=== PATIENT | male | born 1955 | race Caucasian/White ===

== ENCOUNTER 2021-04-14 20:42 | Emergency (ER) | payer BC ==
[2021-04-14] MEDS ORDERED: Losartan 50 MG Tab PO ONE (21:35)
[2021-04-14 22:27] LABS: BLOOD UREA NITROGEN,BUN 18 mg/dL (7.0-18.0); CARBON DIOXIDE,CO2 22.5 mmol/L (21.0-32.0); CHLORIDE,CL 106 mmol/L (98-107); GLUCOSE RANDOM 100 mg/dL (74-106); POTASSIUM,K 3.5 mmol/L (3.5-5.1); SODIUM,NA 137 mmol/L (136-148)
[2021-04-14 23:13] VITALS: BP 170/80; PULSE 98
== END 2021-04-14 23:13 | disposition home or self-care (01) ==
LOC: MW.ED 20:42
DX: I10 Essential (primary) hypertension (principal); Z88.0 Allergy status to penicillin
CPT/HCPCS: 36415; 70450; 80048; 84484; 85025; 99284; A9270

== ENCOUNTER 2022-07-11 08:26 | Day surgery (SDC) | payer BC, MEDICAID, MEDICARE ==
[~2022-07-11 08:26] MED LIST: Lactated Ringers 1,000 ML IV SCH; Propofol 200 MG/20 ML SDV ONE; Sodium Chloride 0.9% 10 ML Syringe FLUSH PRN; Sodium Chloride 0.9% 2.5 ML Syringe FLUSH PRN; Sodium Chloride 0.9% 20 ML SDV IV PRN
[2022-07-11] MEDS ORDERED: Lidocaine 2% 5 ML SDV ONE (08:44)
[2022-07-11] MEDS ORDERED: fentaNYL 100 MCG/2 ML SDV ONE (08:44)
[2022-07-11 10:37] VITALS: BP 133/69; PULSE 63
== END 2022-07-11 10:03 | disposition home or self-care (01) ==
LOC: MW.SDS 08:26
PROVIDERS: ATTEND Surgery
DX: Z12.11 Encounter for screening for malignant neoplasm of colon (principal); D12.8 Benign neoplasm of rectum; K52.9 Noninfective gastroenteritis and colitis, unspecified; J45.909 Unspecified asthma, uncomplicated; I10 Essential (primary) hypertension; G47.33 Obstructive sleep apnea (adult) (pediatric); Z86.010 Personal history of colon polyps; Z88.1 Allergy status to other antibiotic agents; Z88.0 Allergy status to penicillin; Z87.891 Personal history of nicotine dependence; Z79.899 Other long term (current) drug therapy
CPT/HCPCS: 45380; J2704; J3010; J7120; 00811; 88305; J3490

== ENCOUNTER 2022-08-25 11:50 | Emergency (ER) | payer MEDICARE ==
[2022-08-25 12:01] VITALS: BP 145/103
[2022-08-25 14:07] VITALS: PULSE 70
== END 2022-08-25 13:42 | disposition home or self-care (01) ==
LOC: MW.ED 11:50
DX: T18.108A Unspecified foreign body in esophagus causing other injury, initial encounter (principal); J45.909 Unspecified asthma, uncomplicated; I10 Essential (primary) hypertension; E66.9 Obesity, unspecified; Z68.37 Body mass index [BMI] 37.0-37.9, adult; Z79.899 Other long term (current) drug therapy; Z88.0 Allergy status to penicillin; Z88.1 Allergy status to other antibiotic agents
CPT/HCPCS: 71045; 71045-26; 99283

== ENCOUNTER 2024-06-13 11:49 | Emergency (ER) | payer MEDICARE ==
[2024-06-13 12:49] LABS: BASOPHILS ABSOLUTE AUTO 0.08 K/uL (0.00-0.20); BASOPHILS PERCENT AUTO 0.4 % (0.0-1.0); EOSINOPHILS ABSOLUTE AUTO 0.12 K/uL (0.00-0.45); EOSINOPHILS PERCENT AUTO 0.6 % (0.0-6.0); HEMATOCRIT 41.8 % (42.0-52.0); HEMOGLOBIN 14.2 g/dL (14.0-18.0); IMMATURE GRAN ABSOLUTE AUTO 0.15 K/uL (0.00-0.05); IMMATURE GRAN PERCENT AUTO 0.7 % (0.0-0.4); LYMPHOCYTES ABSOLUTE AUTO 0.95 K/uL (1.00-4.80); LYMPHOCYTES PERCENT AUTO 4.7 % (24.0-44.0); MEAN CORPUSCULAR HEMOGLOBIN 28.8 pg (28.0-32.0); MEAN CORPUSCULAR VOLUME 84.8 fL (83.0-99.0); MEAN PLATELET VOLUME 8.5 fL (9.4-12.4); MONOCYTES ABSOLUTE AUTO 0.99 K/uL (0.00-0.80); MONOCYTES PERCENT AUTO 4.9 % (0.0-8.0); NEUTROPHILS ABSOLUTE AUTO 18.12 K/uL (1.80-7.70); NEUTROPHILS PERCENT AUTO 88.7 % (41.0-71.0); PLATELET COUNT,PLT 286 K/uL (150-400); RED BLOOD CELL COUNT 4.93 M/uL (4.52-5.90); WHITE BLOOD CELL COUNT,WBC 20.41 K/uL (3.9-11.3)
[2024-06-13] MEDS: Dicyclomine 10 MG Cap PO ONE (12:53)
[2024-06-13] MEDS: Ondansetron 4 MG/2 ML SDV IVPUSH ONE (12:53)
[2024-06-13] MEDS: Sodium Chloride 0.9% 1,000 ML IV ONE ×2 (12:55→18:06)
[2024-06-13 13:14] LABS: A/G RATIO 0.9 (0.9-1.6); ALBUMIN 3.5 g/dL (3.4-5.0); BILIRUBIN DIRECT 0.1 mg/dL (0.0-0.5); BILIRUBIN TOTAL 0.6 mg/dL (0.2-1.0); CALCIUM 8.8 mg/dL (8.5-10.1); CARBON DIOXIDE,CO2 21.6 mmol/L (21.0-32.0); CREATININE 2.8 mg/dL (0.8-1.3); EST CRCL DRUG DOSING (CG) 28.93 mL/min; POTASSIUM,K 3.4 mmol/L (3.5-5.1); PROTEIN TOTAL,TP 7.6 g/dL (6.4-8.2)
[2024-06-13] MEDS: cefTRIAXone 2 GM in Sodium Chloride 0.9% 50 ML IV ONE (15:52)
[2024-06-13 18:51] VITALS: BP 130/69; PULSE 92
== END 2024-06-13 19:02 | disposition home or self-care (01) ==
LOC: MW.ED 11:49
DX: R10.84 Generalized abdominal pain (principal); R11.2 Nausea with vomiting, unspecified; I10 Essential (primary) hypertension; E78.00 Pure hypercholesterolemia, unspecified; E66.9 Obesity, unspecified; Z86.16 Personal history of COVID-19; Z79.899 Other long term (current) drug therapy; Z75.8 Other problems related to medical facilities and other health care; Z88.1 Allergy status to other antibiotic agents; Z88.0 Allergy status to penicillin; Z68.36 Body mass index [BMI] 36.0-36.9, adult
CPT/HCPCS: 36415; 74177; 80053; 82248; 83605; 83690; 84484; 85025; 87040; 93005; 96361; 96365; 96375; 99284; A9270; J0696; J2405; J7030; 99283